=== PATIENT | male | born 1995 | race Caucasian/White ===

== ENCOUNTER → 2019-12-10 | Outpatient (CLI) | payer BC ==
--- NOTE | 2019-12-11 07:22 | US ---
EXAMINATION TYPE: US groin RT DATE OF EXAM: 12/10/2019 COMPARISON: NONE CLINICAL HISTORY: R59.0 lymphadenopathy. Patient's lump scanned posterior to testicles. Hypoechoic irregular shaped area here, possible small phlegmon or developing abscess. Prominent lymph nodes seen in groin, largest measuring 1.6 x 0.6cm IMPRESSION: A focal area of phlegmon or developing abscess.
== END | disposition home or self-care (01) ==
LOC: RADUSWWP 16:07
PROVIDERS: ATTEND Family Medicine
DX: R59.0 Localized enlarged lymph nodes (principal)

== ENCOUNTER 2020-01-25 12:55 | Emergency (ER) | payer BC ==
[2020-01-25 13:00] VITALS: RESP 18; TEMP 98.7
--- NOTE | 2020-01-25 13:50 | ED ---
Eye Problem HPI - General Chief complaint: Eye Problems Stated complaint: flashes of light in right eye Time Seen by Provider: 01/25/20 13:11 Source: patient Mode of arrival: ambulatory Limitations: no limitations - History of Present Illness Initial comments: Patient is a 24-year-old male presents emergency Department with complaints of floaters in his right eye 2 days. Patient states he noticed them mostly when he was outside. Then yesterday he noticed flashes of light that happened randomly throughout the day. He denies any pain in his right eye. He denies any trauma to his head. He denies any headaches, blurry vision, fever, ear pain. He denies any dizziness. He denies wearing glasses or contacts. He has never had an eye exam. He denies any other pertinent past medical history and takes no medications. He has no other complaints at this time. Upon arrival to the ER, his vitals are stable. - Related Data Home Medications Medication Instructions Recorded Confirmed No Known Home Medications 05/12/15 01/25/20 Allergies Allergy/AdvReac Type Severity Reaction Status Date / Time Penicillins Allergy Unknown Verified 01/25/20 13:52 Review of Systems ROS Statement: Those systems with pertinent positive or pertinent negative responses have been documented in the HPI. ROS Other: All systems not noted in ROS Statement are negative. Past Medical History Past Medical History: No Reported History History of Any Multi-Drug Resistant Organisms: None Reported Additional Past Surgical History / Comment(s): testicle desension Past Psychological History: No Psychological Hx Reported Smoking Status: Never smoker Past Alcohol Use History: Occasional Past Drug Use History: None Reported General Exam - General Exam Comments Initial Comments: GENERAL: Well-appearing, well-nourished and in no acute distress. HEAD: Atraumatic, normocephalic. EYES: Pupils equal round and reactive to light, extraocular movements intact, sclera anicteric, conjunctiva are normal. No foreign bodies. Visual acuity is normal. ENT: TMs normal, nares patent, oropharynx clear without exudates. Moist mucous membranes. NECK: Normal range of motion, supple without lymphadenopathy or JVD. LUNGS: Breath sounds clear to auscultation bilaterally and equal. No wheezes rales or rhonchi. HEART: Regular rate and rhythm without murmurs, rubs or gallops. ABDOMEN: Soft, nontender, normoactive bowel sounds. No guarding, no rebound. No masses appreciated. : Deferred EXTREMITIES: Normal range of motion, no pitting or edema. No clubbing or cyanosis. NEUROLOGICAL: Cranial nerves II through XII grossly intact. Normal speech, normal gait. PSYCH: Normal mood, normal affect. SKIN: Warm, Dry, normal turgor, no rashes or lesions noted. Limitations: no limitations Course Vital Signs 01/25/20 01/25/20 12:58 14:14 Temperature 98.7 F Pulse Rate 95 70 Respiratory 18 18 Rate Blood Pressure 141/88 136/89 O2 Sat by Pulse 99 97 Oximetry Medical Decision Making - Medical Decision Making Patient is a 24-year-old male with sudden onset of right eye floaters and flashes of light over the past 2 days. He denies any eye pain, headache, dizziness. His exam is unremarkable. No red flag symptoms. No complete loss of vision, no black curtains. I spoke with on-call entry level installation technician, Dr. Tran. He is okay with patient being discharged and will follow-up with him on Monday. Patient is in agreement with this plan and care. Strict return parameters were discussed with the patient he verbalizes understanding. He is stable for discharge. Case discussed with Dr. Crisostomo. Disposition Clinical Impression: Vitreous floaters of right eye Disposition: HOME SELF-CARE Condition: Stable Instructions (If sedation given, give patient instructions): Blurred Vision (ED) Additional Instructions: Please return to the Emergency Department if symptoms worsen or any other concerns. Follow-up with entry level installation technician as discussed. Call their office Monday morning for appointment. Is patient prescribed a controlled substance at d/c from ED?: No Referrals: Andrés Gilman MD [Primary Care Provider] - 1-2 days Ronni Lyle MD [STAFF PHYSICIAN] - 1-2 days
[2020-01-25 14:15] VITALS: BP 136/89; PULSE 70
== END 2020-01-25 14:10 | disposition home or self-care (01) ==
LOC: EC 12:55
DX: H43.391 Other vitreous opacities, right eye (principal); Z88.0 Allergy status to penicillin
CPT/HCPCS: 99283

== ENCOUNTER 2021-01-21 13:07 | Emergency (ER) | payer BC ==
[2021-01-21 13:19] VITALS: BP 149/98; PULSE 107; RESP 18; TEMP 98.3
[2021-01-21] MEDS ORDERED: DIPH,PERTUS(ACELL)TETVAC-LF 0.5 ML VIAL IM ONE (13:47)
[2021-01-21] MEDS ORDERED: LIDOCAINE 1% INJ 10MG/ML (20 ML MDV) SQ ONE (13:49)
--- NOTE | 2021-01-21 13:51 | ED ---
Skin/Abscess/FB HPI - General Chief complaint: Skin/Abscess/Foreign Body Stated complaint: L leg injury Time Seen by Provider: 01/21/21 13:24 Source: patient Mode of arrival: ambulatory Limitations: no limitations - History of Present Illness Initial comments: 25-year-old male presents to the emergency department with a chief complaint of a foreign body in the leg. Patient reports he was working with a wire wheel and one of the wires when into his skin in the left leg. Patient reports it is fully embedded into the scanner he is not able to see it. States it measures about 2-3 cm. Tetanus is not today. He denies any numbness or tingling. He denies any significant pain at the site of injury. - Related Data Previous Rx's Medication Instructions Recorded Cephalexin [Keflex] 500 mg PO Q6HR #40 cap 01/21/21 Allergies Allergy/AdvReac Type Severity Reaction Status Date / Time Penicillins Allergy Unknown Verified 01/21/21 13:17 Review of Systems ROS Statement: Those systems with pertinent positive or pertinent negative responses have been documented in the HPI. ROS Other: All systems not noted in ROS Statement are negative. Past Medical History Past Medical History: No Reported History History of Any Multi-Drug Resistant Organisms: None Reported Additional Past Surgical History / Comment(s): testicle desension Past Psychological History: No Psychological Hx Reported Smoking Status: Never smoker Past Alcohol Use History: Occasional Past Drug Use History: None Reported General Exam Limitations: no limitations General appearance: alert, in no apparent distress Head exam: Present: atraumatic, normocephalic, normal inspection Eye exam: Present: normal appearance, PERRL, EOMI Pupils: Present: normal accommodation ENT exam: Present: normal exam, normal oropharynx, mucous membranes moist Neck exam: Present: normal inspection, full ROM. Absent: tenderness Respiratory exam: Present: normal lung sounds bilaterally. Absent: respiratory distress Cardiovascular Exam: Present: regular rate, normal rhythm, normal heart sounds Extremities exam: Present: normal inspection (probable foreign body under the skin of the left thigh.), full ROM, normal capillary refill. Absent: tenderness Back exam: Present: normal inspection, full ROM. Absent: tenderness Neurological exam: Present: alert, oriented X3 Psychiatric exam: Present: normal affect, normal mood Skin exam: Present: warm, dry, intact, normal color Course Vital Signs 01/21/21 13:17 Temperature 98.3 F Pulse Rate 107 H Respiratory 18 Rate Blood Pressure 149/98 O2 Sat by Pulse 100 Oximetry Procedures - Forgein Body Removal Soft Tissue Consent Obtained: verbal consent Site: lower extremity (Left thigh) Anesthetic Used: lidocaine 1% Amount (mLs): 2 Foreign Body Suspected: Metal Foreign Body Removed: yes Foreign Body Removal Technique: Forceps Patient Tolerated Procedure: well, no complications Medical Decision Making - Medical Decision Making 25-year-old male presents emergency Department with chief complaint of a foreign body. On physical examination, there is a palpable foreign body under the skin of the left thigh. I was able to remove it after making a small incision. It was a piece of wire measuring approximately 3 cm in length. The laceration site was thoroughly irrigated and closed with one suture. Tetanus was updated. Patient will be started on Keflex. Advised to return for suture removal. Case discussed with Dr. Swan. Disposition Clinical Impression: Soft tissues foreign body Disposition: HOME SELF-CARE Condition: Stable Instructions (If sedation given, give patient instructions): Soft Tissue Foreign Body (ED) Additional Instructions: Take prescribed medication as directed. Return to emergency department if sympt oms worsen. Please return to the emergency room in 10 days to have sutures removed. Please watch for any signs of infection which may include increased pain, swelling, redness, fever or chills. Please return to emergency room for any signs of infection do occur. Please use clean soap and water over the area to prevent scabbing over your stitches. Please leave wound covered for the first 24-48 hours and then leave wound open to air. Please return to the emergency room for any other concerns. Prescriptions: Cephalexin [Keflex] 500 mg PO Q6HR #40 cap Is patient prescribed a controlled substance at d/c from ED?: No Referrals: Andrés Gilman MD [Primary Care Provider] - 1-2 days Time of Disposition: 13:50
== END 2021-01-21 14:02 | disposition home or self-care (01) ==
LOC: EC 13:07
DX: M79.5 Residual foreign body in soft tissue (principal); Z88.0 Allergy status to penicillin; Z23 Encounter for immunization
CPT/HCPCS: 90715; 99282; 10120; 90471; J2001

== ENCOUNTER → 2021-06-09 | Outpatient (CLI) | payer OTHER ==
--- NOTE | 2021-07-15 13:11 | EM ---
30 Day Event monitor note: Patient wore an event monitor for 22 days from 06/09/2021 until 06/30/2021. There were a total of 464 hours of analyzable data. Findings: Patient's baseline heart rate was normal sinus rhythm. There were no signficant atrial fibrillation, atrial flutter, or ventricular tachycardia episodes. There were no significant pauses greater than 2 seconds. There were a total of 92 patient activated and automatically captured events. Patient activated events described as palpitations, skipped beats corresponded with PVCs as well as PACs, however also occasionally corresponded with normal sinus rhythm. PVCs were rare only occurring 7 times. Conclusions: 30 day event monitor worn for 22 days. Patient activated events corresponding with rare PVCs, PACs as well as with sinus rhythm. No atrial fibrillation, ventricular tachycardia, pauses greater than 2 seconds noted. [facility]
== END | disposition home or self-care (01) ==
LOC: RADECHMAIN 11:37
PROVIDERS: ATTEND Family Medicine
DX: I47.2 Ventricular tachycardia (principal)
CPT/HCPCS: 93270

== ENCOUNTER → 2021-07-07 | Outpatient (CLI) | payer OTHER ==
--- NOTE | 2021-07-07 13:23 | XR ---
EXAMINATION TYPE: XR chest 2V DATE OF EXAM: 07/07/2021 COMPARISON: Chest x-ray 04/01/2002 HISTORY: R07.89 TECHNIQUE: Frontal and lateral views of the chest are obtained. FINDINGS: There is no focal air space opacity, pleural effusion, or pneumothorax seen. The cardiac silhouette size is within normal limits. The osseous structures are intact, there is a spinal curva ture. IMPRESSION: No acute cardiopulmonary process. There is an underlying scoliosis.
== END | disposition home or self-care (01) ==
LOC: RADXRMAIN 11:24
PROVIDERS: ATTEND Nurse Practitioner
DX: R07.89 Other chest pain (principal)
CPT/HCPCS: 71046

== ENCOUNTER 2024-04-16 20:48 | Emergency (ER) | payer BC, OTHER ==
[2024-04-16 21:23] VITALS: TEMP 98.1
--- NOTE | 2024-04-16 22:19 | ED ---
General Adult HPI - General Chief complaint: Psychiatric Symptoms Stated complaint: Anxiety Time Seen by Provider: 04/16/24 21:35 Source: patient Mode of arrival: ambulatory Limitations: no limitations - History of Present Illness Initial comments: Dictation was produced using [employer] dictation software. please excuse any grammatical, word or spelling errors. Chief Complaint: 28-year-old male presents to the emergency department for anxiety depression History of Present Illness: Patient 28-year-old male he is brought in by and father. Patient for the last week has been feeling depressed. He is also having intrusive thoughts. There are a lot of firearms in the household. States that she is worried about patient's safety which is why he is in the emergency department. Patient denies any overt suicidal or homicidal ideations. No visual auditory hallucinations. Patient not paranoid The ROS documented in this emergency department record has been reviewed and confirmed by me. Those systems with pertinent positive or negative responses have been documented in the HPI. All other systems are other negative and/or noncontributory. - Related Data Previous Rx's Medication Instructions Recorded Cephalexin [Keflex] 500 mg PO Q6HR #40 cap 01/21/21 Allergies Allergy/AdvReac Type Severity Reaction Status Date / Time Penicillins Allergy Unknown Verified 04/16/24 21:23 Review of Systems ROS Statement: Those systems with pertinent positive or pertinent negative responses have been documented in the HPI. ROS Other: All systems not noted in ROS Statement are negative. Past Medical History Past Medical History: No Reported History History of Any Multi-Drug Resistant Organisms: None Reported Additional Past Surgical History / Comment(s): testicle desension. tumor removed from abdomen March 2023 Past Psychological History: No Psychological Hx Reported Smoking Status: Never smoker Past Alcohol Use History: Occasional Past Drug Use History: Marijuana General Exam - General Exam Comments Initial Comments: General: Well-appearing, nontoxic, no acute distress. Head: Normocephalic, atraumatic Eyes: PERRLA, EOMI ENT: Airway patent Chest: Nonlabored breathing Skin: No visual rash, normal skin tone Neuro: Alert and oriented 3 Musculoskeletal: No gross abnormalities Limitations: no limitations Course Vital Signs 04/16/24 04/17/24 21:18 01:49 Temperature 98.1 F Pulse Rate 84 60 Respiratory 18 16 Rate Blood Pressure 132/87 108/68 O2 Sat by Pulse 98 98 Oximetry Medical Decision Making - Medical Decision Making Was pt. sent in by a medical professional or institution (, PA, HEEL [facility]UGGER, urgent care, hospital, or half-way...) When possible be specific @ -No Did you speak to anyone other than the patient for history (EMS, parent, family, police, friend...)? What history was obtained from this source @ -No Did you review nursing and triage notes (agree or disagree)? Why? @ -I reviewed and agree with nursing and triage notes Were old charts reviewed (outside hosp., previous admission, EMS record, old EKG, old radiological studies, urgent care reports/EKG's, half-way records)? Report findings @ -No old charts were reviewed Differential Diagnosis (chest pain, altered mental status, abdominal pain women, abdominal pain men, vaginal bleeding, musculoskeletal, weakness, fever, dyspnea, syncope, headache, dizziness, GI bleed, back pain, seizure, CVA, palpatations, mental health)? @ -Differential Mental Health: Depression, anxiety, bipolar, psychosis, schizophrenia, borderline personality, situational depression, adjustment disorder, behavioral disorder, brain tumor, malingering, substance abuse, encephalopathy, medication reaction, dementia, hypothyroidism, degenerative neurologic disorder, lupus.... This is not meant to be all-inclusive list EKG interpreted by me (3pts min.). @ -None done X-rays interpreted by me (1pt min.). @ -None done CT interpreted by me (1pt min.). @ -None done U/S interpreted by me (1pt. min.). @ -None done What testing was considered but not performed or refused? (CT, X-rays, U/S, labs)? Why? @ -None What meds were considered but not given or refused? Why? @ -None Was smoking cessation discussed for >3mins.? @ -No Were there social determinants of health that impacted care today? How? (Homelessness, low income, unemployed, alcoholism, drug addiction, transportation, low edu. Level, literacy, decrease access to med. care, [facility], rehab)? @ -No Was there de-escalation of care discussed even if they declined (Discuss DNR or withdrawal of care, Hospice)? DNR status @ -No What co-morbidities impacted this encounter? (DM, HTN, Smoking, COPD, CAD, Cancer, CVA, ARF, Chemo, Hep., AIDS, mental health diagnosis, sleep apnea, morbid obesity)? @ -None Was patient admitted / discharged? Hospital course, mention meds given and route, prescriptions, significant lab abnormalities, going to OR and other pertinent info. @ -28-year-old male presents to the ER along with the and father. Patient has been having intrusive thoughts. Sounds like he has contemplated suicide however does not feel suicidal. Vital signs are stable. Family is concerned about patient's wellbeing especially since there are firearms in the household. Family requesting EPS evaluation. Patient medically cleared for EPS. Patient eval by EPS and all firearms were removed from the house. Patient not having any active suicidal homicidal ideation. He is cleared for discharge with close psychiatric outpatient follow-up. Did you discuss the management of the patient with other professionals (prof jordanionals i.e. , PA, HEEL SLUGGER, lab, RT, psych nurse, social group worker, sweep molder, teacher, department of natural resources officer, case resource manager)? Give summary @ -No Was critical care preformed (if so, how long)? @ -No Undiagnosed new problem with uncertain prognosis? @ -No Drug Therapy requiring intensive monitoring for toxicity (Heparin, Nitro, Insulin, Cardizem)? @ -No Were any procedures done? @ -No Diagnosis/symptom? Acute, or Chronic, or Acute on Chronic? Uncomplicated (without systemic symptoms) or Complicated (systemic symptoms)? @ -Depression Side effects of treatment? @ -No Exacerbation, Progression, or Severe Exacerbation? @ -No Poses a threat to life or bodily function? How? (Chest pain, [place], [place], pneumonia, PE, COPD, DKA, ARF, appy, cholecystitis, CVA, Diverticulitis, Homicidal, Suicidal, threat to staff... and all critical care pts) @ -yes Disposition Clinical Impression: Depression Disposition: HOME SELF-CARE Condition: Fair Instructions (If sedation given, give patient instructions): Depression (ED) Is patient prescribed a controlled substance at d/c from ED?: No Referrals: Mimi Celis MD [Primary Care Provider] - 1-2 days Time of Disposition: 02:08
[2024-04-17 01:50] VITALS: BP 108/68
[2024-04-17 02:25] VITALS: PULSE 71; RESP 18
== END 2024-04-17 02:25 | disposition home or self-care (01) ==
LOC: EC 20:48
DX: F32.A Depression, unspecified (principal); Z88.0 Allergy status to penicillin
CPT/HCPCS: 82075; 99284